=== PATIENT | male | born 1995 | race Caucasian/White ===

== ENCOUNTER 2018-05-17 09:36 | Outpatient (CLI) | payer BC ==
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
== END 2018-05-17 09:37 | disposition home or self-care (01) ==
LOC: SPVIMAG 09:36
PROVIDERS: ATTEND Family Medicine Adult Medicine
DX: M54.2 Cervicalgia (principal); Z88.0 Allergy status to penicillin; Z88.1 Allergy status to other antibiotic agents
CPT/HCPCS: 72050